=== PATIENT | male | born 1955 | race Caucasian/White ===

== ENCOUNTER 2024-10-15 18:58 | Inpatient (IN) | payer MEDICARE, SELFPAY ==
[2024-10-15 15:25] VITALS: BMI 35.6
--- NOTE | 2024-10-15 15:28 | HPS.HSE ---
Family Physician
-
Family Physician:
Chief Complaint
-
Chest pain.
History of Present Illness
69 y/o male with CAD s/p CABG (reportedly x6 @ [facility], 17 years ago) presenting with a STEMI. Patient reports prior exertional angina. Pain become constant and EMS was called. When they arrived, they found him on the floor. He denies LOC but it is
noted that he has lost control of bowel and bladder. He reports that his chest pain continues, though not as severe as before. He is visibly diaphoretic and clammy to the touch. Auto-BP will not register. Manual SBP is < 80 mmHg. EKG shows
junctional rhythm with large ELVIA in the inferior leads and smaller ELVIA in the anterolateral leads. The patient was given ticagrelor, heparin, aspirin and is being started on norepinephrine.
His son is present and reports that the patient does consume EtOH but does not smoke. He reports good medication compliance.
Medical History
Past Medical History
Past Medical History: Reports CAD
Past Surgical History: Reports Cardiac (CABG @ [facility] circa [id number] (reportedly 6 grafts - unknown anatomy).)
Social History
Unable to obtain full social history at this time due to: Acuity
Tobacco: Non-smoker
Alcohol: Daily
Living: Alone
Family History
Family History: Not pertinent
Allergies / Home Medications
Allergies reflects when Allergies were last updated in [employer].
Home Medications with original date entered in [employer]
Allergy/Medication List:
NKDA.
Review of Systems
-
Unable to obtain full review of systems at this time due to: Acuity
History Source: Patient and Family
Constitutional: Reports Other (Diaphoresis.)
Respiratory: Reports Trouble Breathing
Cardiac: Reports Chest Pain
Physical Exam
Vital Signs
Vital Signs
Pulse Resp Pulse Ox
42 16 93
10/15/24 15:21 10/15/24 15:21 10/15/24 15:21
Physical Exam
General: Well Developed, Well Nourished, Appears in Distress, Sweats and Obese
HEENT: NormoCephalic, Anicteric, Moist mucous membranes, Atraumatic, PERRLA, No Ptosis, Nose Appears Normal and Ears Appear Normal
Respiratory: Clear
Cardiac: S1/S2 and Regular Rhythm
Breast: Deferred by me
GI: Non Tender, Non Distended, Normal Bowel Sounds and No Hepatosplenomegaly
Rectal: Brown
Genito-urinary: Deferred by me
Musculoskeletal: No Clubbing, No Cyanosis and No Edema
Skin: Other (Cold/clammy.)
Neuro: AO x 3
Hematologic/Lymphatic: No Lymphadenopathy
Data Reviewed
-
Medical Tests (Nuc Med, Echo, EKG etc): Image Personally Visualized and interpreted, Report Reviewed by me and Discussed with Physician
Impression/Plan
-
Impression/Plan: 69 y/o male with CAD and prior CABG (unknown anatomy) presenting with STEMI (ELVIA in inferior and anterolateral leads) and likely cardiogenic shock.
#STEMI
-Acute, threat to life.
-Emergent cardiac catheterization/ad hoc PCI. Possibly placement of MCS given hypotension and likely shock. Clear lungs, junctional rhythm and inferior ELVIA concerning for RV infarct.
-Consent is signed and on the chart.
-Critically ill.
-Further instructions to follow.
[2024-10-15 15:30] LABS: % Basophils 0.3 % (0-2); % Eosinophils 0.5 % (0-6); % Immature Granulocytes 0.6 % (0-0.5); % Lymphocytes 15.1 % (20.5-51.1); % Monocytes 5.8 % (1.7-9.3); % Neutrophils 77.7 % (42.2-75.2); Absolute Eosinophils 0.1 10^3/uL (0-0.7); Absolute Immature Granulocytes 0.1 10^3/uL (0-0.05); Absolute Lymphocytes 1.9 10^3/uL (1.2-3.4); Absolute Monocytes 0.7 10^3/uL (0.1-0.6); Absolute Neutrophils 9.9 10^3/uL (1.4-6.5); Hematocrit 38.1 % (39.0-52.0); Hemoglobin 12.9 g/dL (13.0-18.0); Mean Corp Hgb Conc. 33.9 g/dL (33.0-37.0); Mean Corpuscular Hgb 30.6 pg (27.0-31.0); Mean Corpuscular Volume 90.5 fL (80.0-94.0); Mean Platelet Volume 9.1 fL (7.4-10.4); Nucleated Red Blood Cells % 0 % (-); Platelet Count 247 10^3/uL (130-400); Red Blood Cell Count 4.21 10^6/uL (4.70-6.10); Red Cell Dist. Width 13.2 % (11.5-14.5); White Blood Cell Count 12.7 10^3/uL (4.8-10.8)
[2024-10-15 15:38] LABS: INR 1.04
[2024-10-15 15:39] LABS: APTT 23.4 Sec (23.4-35.0)
[2024-10-15 15:42] LABS: ALT (SGPT) 11 U/L (0-50); AST (SGOT) 23 U/L (17-59); Albumin 4.1 g/dl (3.5-5.0); Alkaline Phosphatase 46 U/L (38-126); Blood Urea Nitrogen 20 mg/dl (9-20); Calcium 8.8 mg/dl (8.4-10.2); Carbon Dioxide 21 mmol/L (22-30); Chloride 107 mmol/L (98-107); Estimated Creatinine Clearance 57 ml/min; Glucose 261 mg/dl (70-99); Potassium 4.5 mmol/L (3.5-5.1); Sodium 139 mmol/L (135-145); Total Bilirubin 0.4 mg/dl (0.2-1.3); Total Protein 6.4 g/dl (6.3-8.2)
--- NOTE | 2024-10-15 15:46 | ED.GENMED ---
History of Present Illness
General
Chief Complaint: Chest Pain
Source: patient and ambulance crew
Time Seen by Provider: 10/15/24 15:16
History of Present Illness
History of Present Illness:
69-year-old male brought to the emergency room by medics with chest pain, dizziness. Patient states he was working out at home when he began to have chest pain. He collapsed to the ground. He does not believe he lost consciousness so the patient
was incontinent of stool and urine suggesting he very well may have had a his syncopal episode. Prehospital EKG showed inferior and anterior ST elevation. A prehospital STEMI alert was called. Patient states he does have a history of coronary
artery disease and had 6 vessel bypass surgery at [place] 17 years ago. He denies taking aspirin, Plavix, Brilinta, or any other oral anticoagulants or antiplatelet. He does not recall the name of his rug washer and has not seen a rug washer
in a while. Patient does endorse recently having exertional chest discomfort which goes away when he rests. He rates his chest pain a 6 out of 10. Medics noted the patient to be bradycardic and diaphoretic as well.
Phy Exam
Physical Exam
Physical Exam:
General: Awake, Alert, Oriented X3. Patient appears acutely ill, diaphoretic, pale
Vitals: Bradycardic, hypotensive
Head: Atraumatic
Eyes: Pupils equal, EOMI
Throat: Airway intact, no exudates
Neck: Trachea midline
Lungs: Clear and equal b/l
Heart: Regular rate, no murmurs
Abd: Soft, Nontender, No pulsatile mass
Neuro: Nonfocal
Skin: Warm, dry, no rash
Extremities: pulses equal b/l, no edema
Scores
Heart Score for Chest Pain Patients
STEMI patient?: Yes
Course
Orders/Labs/Results
Orders:
Orders
10/15/24
Echo 2D MMode Color/Doppler Urgent
Reason for Study: impella placement
Portable Chest Xray [CR Chest Portable - 1 View] Urgent
Comment:
Reason For Exam: impella placement
Reason Study Needs to be Portable: Unable to Transport
10/15/24 Dinner
NPO
Allow oral meds: No
Allow clear liquids: No
NPO with Ice Chips: No
10/15/24 15:20
ECG [Electrocardiogram (*1)] Urgent
Reason for Study: Chest Pain
EKG- Treatment ONCE
10/15/24 15:22
Complete Blood Count/With Diff Urgent
Comprehensive Metabolic Panel Urgent
PT/INR [Prothrombin Time] Urgent
PTT Urgent
Troponin I Urgent
10/15/24 15:23
NORepinephrine 4 MG/250 ML [Levophed] 4 mg in 250 ml .ROUTE .STK-MED
10/15/24 16:15
Amiodarone [Cordarone] 900 mg DEXTROSE 5% PVC-free BAG [D5W PVC-free BAG] 500 ml IV PER PROTOCOL
10/15/24 16:20
Aspirin Chewable [Low Strength Aspirin] 324 mg .ROUTE .STK-MED ONE
Heparin 5,000 units .ROUTE .STK-MED ONE
Ticagrelor [Brilinta] 180 mg .ROUTE .STK-MED ONE
10/15/24 17:03
Sodium Bicarbonate 25 meq Dextrose 5%/Water 1000 ml [D5w] 1,000 ml INF CATH PRN
10/15/24 17:44
Nitroglycerin Sublingual [Nitrostat (Sublingual)] 0.4 mg SL [id number] PRN
Neurological Checks As Directed
Frequency: q2h
10/15/24 17:45
Gear Hobber Set Up Operator Consult Urgent
Consulting Provider: Arnel Posada
Was physician already notified: Yes
Reason for consult: RV impella d/t RV infarct
Urinalysis Urgent
Bedside Glucose Monitoring-ONCE As Directed
Comment: upon arrival to ICU
Bladder Scan As Directed
Follow Bladder Retention/Intermittent Cath Algorithm?: Yes
Frequency: Per Retention Algorithm
Comment: as per intermittent urinary catheter algorithm
ECG as needed As Directed
ECG as needed for:: Chest Pain
Other reason
Other reason for ECG as needed:: new suspicion of ACS
Comment: At onset of Chest Pain and then Q__H x 2. draw Troponin with each ECG
Additional Instructions:: at onset of chest pain or new suspicion of ACS:
-- ECG and Troponin urgent now
-- then ECG and Troponin with each ECG every 3 hours x total of 3,
including ED or other inpatient ECG/troponins.
Intake/ Output As Directed
Frequency: Per unit guidelines
Notify MD As Directed
Notify physician if: if patient has chest pain or new suspicion of ACS
Notify MD As Directed
Notify physician if: while in ICU level of care:
glucose greater than or equal to 180 mg/dL once, contact provider to initiate Critical
Care Glycemic Protocol Target Range 140-180 mg/dL.
Vital Signs As Directed
Frequency: Per unit guidelines
Weight As Directed
Frequency: Daily
Pulse Ox/spot Check [RESP] Urgent
Quantity: 1
Special Instructions: Pulse Oximetry on admission
10/15/24 18:21
Admit Patient As Directed
Co-Sign Provider:
Level of Care: Inpatient admission
Assign to:: CVICU
Physician / Group: Tony/SYD
Diagnosis: RV infarct, inferior STEMI, unsuccessful intervention, RPella.
Reason for Hospitalization: RV infarct, inferior STEMI, unsuccessful intervention, RPella.
Expected length of stay greater than two midnights?: Yes
ELOS- Estimated Length of Stay in days: 5
I certify the patient meets the requirements for IP care: Yes
Reason for Overnight Stay: Standard of Care
Code Status As Directed
Resuscitation Status: Full Code
Acetaminophen [Tylenol] 650 mg PO Q4HPRN PRN
Fentanyl Citrate/Pf [Sublimaze] 50 mcg IV [id number] PRN
Midazolam HCl [Versed] 1 mg IV Q5MPRN PRN
Activity As Directed
Activity Level: Bedrest
Comment: refer to hemostasis device used for bedrest duration, then ambulate ad billy
Revenue Specialist Procedure As Directed
Cardiac Cath Procedure: Cardiac catheterization, RPella placement.
Revenue Specialist Procedure As Directed
Cardiac Cath Procedure: cardiac catheterization
Femoral Artery Hemostasis Method As Directed
Procedure performed:: Cardiac Catheterization
Type of femoral hemostasis method used:: Other
Other femoral hemostasis method used:: Sheaths sutured in place.
Duration of bedrest (hours):: 9
Instructions:: Absolute bed rest.
Call provider if:: hematoma present after hemostasis achieved
Head of Bed-Restrictions As Directed
Comment: may elevate head of bed 30 degrees
Notify MD As Directed
Notify physician if: immediately for chest pain or bleeding from access site(s)
Site Checks As Directed
Check access site for bleeding/hematoma: Yes
Comment: on arrival, Q15min x4, Q30min x2, Q1 hr x2, Q2 hr x2, Q4 hr or per
protocol
Vascular Checks As Directed
Location: distal to access site - pulse check
Frequency: Other
Comment: on arrival, Q15min x4, Q30min x2, Q1 hr x2, Q2 hr x2, Q4 hr or per protocol
Venous Foot Pumps As Directed
Location: Bilateral feet
Vital Signs As Directed
Frequency: Other
Additional Instructions:: on arrival, Q15min x4, Q30min x2, Q1 hr x2, Q2 hr x2, then Q4 hr or per unit
protocol
10/15/24 18:22
PRN Pain Medication Management As Directed
May give lesser potent ordered pain med per pt: Yes
preference::
Protocol:: Medication orders for pain may be administered in a
manner that supports deferring to patient preference
when the pt is:
- Requesting an ordered lesser potent pain medication.
Least to most potent pain medications are defined
as: acetaminophen < NSAID < tramadol < opioids
(morphine, oxycodone, hydromorphone).
- Requesting a lesser dose of the same medication IF
ORDERED.
- Requesting a less intrusive route of administration
if both routes are prescribed by the provider (PO <
IV).
DX Deep Vein Thrombosis Video Routine
10/15/24 18:30
0.9% Sodium Chloride 1000 ml [Nss] 1,000 ml IV PER PROTOCOL
Infusion rate in mL/kg/hr:: 1.5
Infusion rate in mL/hr:: 146
Duration of infusion (hours):: 3
DOBUTamine 500 MG/D5W 250 ML [Dobutrex 500 mg] 500 mg in 250 ml IV PER PROTOCOL
Currently infusing. Continue current dose and titrate:: Yes
Titrate to keep:: SBP > 90 mmHg
Titrate by mcg/kg/min:: 0.5 mcg/kg/minute
Frequency of titrations (minutes):: 15
Maximum dose in mcg/kg/min:: 20
Begin to taper infusion when:: Remained at goal for 4hrs
Taper by mcg/kg/min:: 1 mcg/kg/min
Frequency of taper (minutes) if patient maintains goal:: 30
Taper to off?: Yes
If infusion off & no longer maintaining goal:: Contact Provider
EPINEPHrine 4 mg/250 mL NSS [Adrenalin] 4 mg in 250 ml IV PER PROTOCOL
Currently infusing. Continue current dose and titrate:: Yes
Titrate to keep:: SBP > 90 mmHg
Titrate by mcg/min:: 0.5-1 mcg/min
Frequency of titrations (minutes):: 5
Maximum dose in mcg/min:: 10
Begin to taper infusion when:: Remained at goal for 4hrs
Taper by mcg/min:: 0.5-1 mcg/min
Frequency of taper (minutes) if patient maintains goal:: 30
Taper to off?: Yes
If infusion off & no longer maintaining goal:: Contact Provider
Lidocaine 2 Gram/500 ml [Xylocaine 2 Gram] 2,000 mg in 500 ml IV ORDERED RATE
NORepinephrine 4 MG/250 ML [Levophed] 4 mg in 250 ml IV PER PROTOCOL
Currently infusing. Continue current dose and titrate:: Yes
Titrate to keep:: SBP > 90 mmHg
Titrate by mcg/min:: 1-2 mcg/min
Frequency of titrations (minutes):: 5
Maximum dose in ICU in mcg/min:: 30
Maximum dose in IMU in mcg/min:: 8
Maximum dose in IVU in mcg/min:: 4
Begin to taper infusion when:: Remained at goal for 4hrs
Taper by mcg/min:: 1-2 mcg/min
Frequency of taper (minutes) if patient maintains goal:: 30
Taper to off?: Yes
If infusion off & no longer maintaining goal:: Contact Provider
10/15/24 18:31
Heparin Protocol- PTT Orders As Directed
PTT per Heparin protocol: -Obtain CBC and baseline PTT - if not already collected.
-Obtain PTT 6 hours from start of infusion. Then, every 6 hours until 2 consecutive
PTT's are therapeutic. Then, PTT Daily.
-With each rate change, obtain PTT every 6 hours until 2 consecutive PTT's are
therapeutic. Then, PTT Daily.
Notify MD As Directed
Notify physician if: PTT is greater than or equal to 200.
10/15/24 18:37
Lactic Acid Q6H
10/15/24 18:38
Arterial Blood Gas Urgent
%Oxygen/Room Air: vent
Complete Blood Count/With Diff Urgent
Comprehensive Metabolic Panel Urgent
D-Dimer Urgent
Fibrinogen Urgent
Glycohemoglobin (HgbA1c) Urgent
LDH Q6H
Magnesium Urgent
Phosphorus Urgent
Protime/PTT Urgent
Transfer Attending Physician [Change Attending Physician] As Directed
Change attending physician to: reynaldo hudson
10/15/24 18:45
Heparin 01639 Units/250 ml 25,000 units in 250 ml IV PER PROTOCOL
Weight to be used for heparin protocol in kilograms (kg):: 97.1
Protocol:: Cardiac Tx/Acute Coronary
PTT Goal Range to be used:: PTT 73 to 111 seconds
Order type:: Initial
INITIAL Infusion Dose (UNITS/KG/hr) & then follow protocol:: 12 units/kg/hr
Infusion Dose in UNITS/hr & then follow protocol (UNITS/hr):: 1,000
INFUSION RATE in mL/hr & then follow protocol (mL/hr):: 10
PTT less than or equal to 64 seconds:: Increase rate by 200 units/hr (+ 2 mL/hr)
PTT 64.1 to 72.9 seconds:: Increase rate by 100 units/hr (+ 1 mL/hr)
PTT 73 to 111 seconds:: Target Range. No change in rate.
PTT 111.1 to 130.9 seconds:: Decrease rate by 100 units/hr (- 1 mL/hr)
PTT 131 to 199.9 seconds:: HOLD for 1 hr. Then decrease rate by 200 units/hr (- 2 mL/hr)
PTT greater than or equal to 200 seconds:: HOLD for 2 hrs & Notify Provider. Then decrease by 200 units/hr (-
2 mL/hr)
Lab follow-up:: Each change, PTT q6h until 2 consecutive are therapeutic. Then PTT
daily.
Lidocaine Bolus 100 mg [Xylocaine Bolus 100 mg] 100 mg IV NOW STA
10/15/24 18:[address] See Dose Instructions PO ONCE PRN PRN
10/15/24 18:50
Sodium Bicarbonate 50 meq .ROUTE .STK-MED ONE
Transvenous Pacemaker As Directed
Rate: 90
MA: 10
Demand: R femoral
10/15/24 18:53
Calcium CHLORIDE [Calcium Chloride 10% Syringe] 2,000 mg .ROUTE .STK-MED ONE
Sodium Bicarbonate 100 meq .ROUTE .STK-MED ONE
10/15/24 18:54
Calcium CHLORIDE [Calcium Chloride 10% Syringe] 500 mg IV NOW STA
Magnesium Sulfate 1 G/D5w [Magnesium Sulfate] 1 gm in 100 ml IV NOW
10/15/24 19:00
0.9% Sodium Chloride 500 ml [Nss] 500 ml IV [id number]
Flush (0.9% Sodium Chloride) [Flush (Nss)] See Dose Instructions IV PER PROTOCOL
10/16/24 00:11
LDH Q6H
10/16/24 00:15
Lactic Acid Q6H
10/16/24 06:00
Complete Blood Count/No Diff DAILY
Comprehensive Metabolic Panel DAILY
D-Dimer DAILY
Fibrinogen DAILY
Magnesium DAILY
PT/INR [Prothrombin Time] DAILY
CR Chest Portable - 1 View IN AM
Comment:
Reason For Exam: s/p OK
Reason Study Needs to be Portable: Unable to Transport
10/16/24 06:11
LDH Q6H
10/16/24 06:15
Lactic Acid Q6H
10/16/24 08:00
Pantoprazole [Protonix IV] 40 mg IV DAILY
10/16/24 12:11
LDH Q6H
10/16/24 12:15
Lactic Acid Q6H
10/17/24 06:00
Complete Blood Count/No Diff DAILY
Complete Blood Count/No Diff Q2D
Comment: Notify MD if platelet count is <130,000 or decreases by 50% from baseline
Comprehensive Metabolic Panel DAILY
D-Dimer DAILY
Fibrinogen DAILY
Magnesium DAILY
PT/INR [Prothrombin Time] DAILY
10/18/24 06:00
Complete Blood Count/No Diff DAILY
Comprehensive Metabolic Panel DAILY
D-Dimer DAILY
Fibrinogen DAILY
Magnesium DAILY
PT/INR [Prothrombin Time] DAILY
10/19/24 06:00
Complete Blood Count/No Diff DAILY
Complete Blood Count/No Diff Q2D
Comment: Notify MD if platelet count is <130,000 or decreases by 50% from baseline
Comprehensive Metabolic Panel DAILY
D-Dimer DAILY
Fibrinogen DAILY
Magnesium DAILY
PT/INR [Prothrombin Time] DAILY
10/20/24 06:00
Complete Blood Count/No Diff DAILY
Comprehensive Metabolic Panel DAILY
D-Dimer DAILY
Fibrinogen DAILY
Magnesium DAILY
PT/INR [Prothrombin Time] DAILY
10/21/24 06:00
Complete Blood Count/No Diff DAILY
Complete Blood Count/No Diff Q2D
Comment: Notify MD if platelet count is <130,000 or decreases by 50% from baseline
Comprehensive Metabolic Panel DAILY
D-Dimer DAILY
Fibrinogen DAILY
Magnesium DAILY
PT/INR [Prothrombin Time] DAILY
10/22/24 06:00
Complete Blood Count/No Diff DAILY
Comprehensive Metabolic Panel DAILY
D-Dimer DAILY
Fibrinogen DAILY
Magnesium DAILY
PT/INR [Prothrombin Time] DAILY
10/23/24 06:00
Complete Blood Count/No Diff Q2D
Comment: Notify MD if platelet count is <130,000 or decreases by 50% from baseline
10/25/24 06:00
Complete Blood Count/No Diff Q2D
Comment: Notify MD if platelet count is <130,000 or decreases by 50% from baseline
10/27/24 06:00
Complete Blood Count/No Diff Q2D
Comment: Notify MD if platelet count is <130,000 or decreases by 50% from baseline
10/29/24 06:00
Complete Blood Count/No Diff Q2D
Comment: Notify if platelet count is <130,000 or decreases by 50% from baseline
10/31/24 06:00
Complete Blood Count/No Diff Q2D
Comment: Notify MD if platelet count is <130,000 or decreases by 50% from baseline
Abnormal Lab Results
10/15/24 10/15/24 10/15/24
15:22 16:33 16:49
WBC 12.7 H 10^3/uL
(4.8-10.8)
RBC 4.21 L 10^6/uL
(4.70-6.10)
Hgb 12.9 L g/dL
(13.0-18.0)
Hct 38.1 L %
(39.0-52.0)
MCH
Abs Immat Gran (auto) 0.1 H 10^3/uL
(0-0.05)
Absolute Neuts (auto) 9.9 H 10^3/uL
(1.4-6.5)
Absolute Monos (auto) 0.7 H 10^3/uL
(0.1-0.6)
Immature Gran % 0.6 H %
(0-0.5)
Neutrophils % 77.7 H %
(42.2-75.2)
Lymphocytes % 15.1 L %
(20.5-51.1)
PT
APTT
D-Dimer
pH
pCO2
HCO3
Potassium
Chloride
Carbon Dioxide 21 L mmol/L
(22-30)
Glucose 261 H mg/dl
(70-99)
Lactic Acid
Calcium
Phosphorus
AST
Lactate Dehydrogenase
Troponin I 0.058 H* ng/ml
Total Protein
Albumin
POC ACT Low Range 221 H Seconds 331 H Seconds
(116-155) (116-155)
10/15/24 10/15/24 10/15/24
18:30 18:37 18:38
WBC 19.7 H 10^3/uL
(4.8-10.8)
RBC 3.90 L 10^6/uL
(4.70-6.10)
Hgb 12.2 L g/dL
(13.0-18.0)
Hct 36.0 L %
(39.0-52.0)
MCH 31.3 H pg
(27.0-31.0)
Abs Immat Gran (auto) 0.2 H 10^3/uL
(0-0.05)
Absolute Neuts (auto) 15.1 H 10^3/uL
(1.4-6.5)
Absolute Monos (auto) 1.4 H 10^3/uL
(0.1-0.6)
Immature Gran % 1.2 H %
(0-0.5)
Neutrophils % 76.6 H %
(42.2-75.2)
Lymphocytes % 14.9 L %
(20.5-51.1)
PT 18.2 H Sec
(11.4-14.6)
APTT > 200 H* Sec
(23.4-35.0)
D-Dimer 0.74 H ug/mlFEU
(0.00-0.50)
pH 7.17 L*
(7.35-7.45)
pCO2 49 H mmHg
(35-48)
HCO3 17.9 L mmol/L
(21-28)
Potassium 3.1 L D mmol/L
(3.5-5.1)
Chloride 111 H mmol/L
(98-107)
Carbon Dioxide 14 L* mmol/L
(22-30)
Glucose 418 H mg/dl
(70-99)
Lactic Acid 4.1 H* mmol/L
(0.7-2.0)
Calcium 7.1 L D mg/dl
(8.4-10.2)
Phosphorus 5.1 H mg/dl
(2.5-4.5)
AST 113 H U/L
(17-59)
Lactate Dehydrogenase 375 H U/L
(120-246)
Troponin I
Total Protein 5.5 L g/dl
(6.3-8.2)
Albumin 3.2 L g/dl
(3.5-5.0)
POC ACT Low Range 318 H Seconds
(116-155)
10/15/24 18:38
10/15/24 18:38
Vital Signs
Initial and Last Documented VS:
Initial Vital Signs
Pulse Ox
93
10/15/24 15:15
Last Documented Vital Signs
Temp Pulse Resp Pulse Ox
94.5 F L 0 0 98
10/15/24 18:54 10/15/24 19:32 10/15/24 19:32 10/15/24 18:53
MDM/Problems Addressed
Differential Diagnosis Includes:
STEMI, dissection, GERD
MDM/Problems Addressed:
Patient presents with chest discomfort. Prehospital EKG consistent with a ST elevation myocardial infarction. Catheter was called prior to patient's arrival. Dr. Graff in the emergency room after the patient. Patient appeared to be diaphoretic,
mildly confused, hypotensive and bradycardic. IV fluid bolus was administered as well as Levophed was initiated. Patient was maintaining his airway. Nasal cannula oxygen was administered. After receiving Brilinta and heparin the patient was
taken to the Revenue Specialist. I escorted the patient to the Revenue Specialist given his unstable vital signs. He was transferred to the Revenue Specialist table
Chronic conditions affecting care: HTN and CAD
*Pulse Oximetry
Patient hypoxic: yes
Comment: 92
*EKG
Interpreted by ED Provider?: Yes
Interpretation: abnormal
Heart Rate: 38
Rate: bradycardiac
Rhythm: junctional
Interval: normal interval
QRS Pattern: right bundle branch block
Ischemia: ST elevation (2, 3, aVF, V3, v4, v5, v6 with reciprocal changes)
*Security Shift Manager Interpretation
Rate: bradycardiac
Interpretation: abnormal
Heart Rate: 38
Rhythm: junctional
*Critical Care Note
Total Time (30-74mins, 75-104mins- exclusive of procedures): 30
comment:
Critical care statement: A total of 30 minutes of critical care time was provided for this patient. This includes management of unstable vital signs, evaluation of the patient at bedside, reviewing the patient's pertinent medical records, discussion
with consultants, review of old EKGs, escorting patient up to the Revenue Specialist. This time with separate from time utilized to perform the aforementioned documented procedures
ED Attending Note
-
Portions of this chart may have been created with voice recognition software.� Occasional wrong word or��sound alike� substitutions may have occurred due to the inherent limitations of voice recognition software.
Discharge Plan
Departure
Patient Disposition: Admit
Date of Disposition: 10/15/24
Time of Disposition: 16:01
Admit to: skilled laborer
Presentation/result/management discussed w/ accepting MD/: Dr. Graff
Condition: Critical
Discharge Problem:
Inferior and lateral ST segment elevation
Interventions
Interventions:
*Risk Screen - Suicide Last Done: 10/15/24 15:15
*General Assessment Last Done: 10/15/24 15:15
*Neglect/Abuse Screening Last Done: 10/15/24 15:15
*Nursing Disposition Last Done: 10/15/24 15:30
ED- Cardiac Assessment Last Done: 10/15/24 15:15
Discharge Date and Time
Discharge Date/Time: 10/15/24 15:30
--- NOTE | 2024-10-15 15:54 | EDRN ---
See ACS sheet.
Report to lab coordinator 15:29
Transported on levophed at 5mcg/min, increased to 10 mcg/min enroutwe when pressure dropped to 70/54.
[2024-10-15 16:04] LABS: Troponin I 0.058 ng/ml
[2024-10-15 16:38] LABS: ACT-LR - POC 221 Seconds (116-155)
[2024-10-15 16:55] LABS: ACT-LR - POC 331 Seconds (116-155)
--- NOTE | 2024-10-15 17:47 | W.PN.ANESINT ---
Anesthesia Intubation Note
- Intubation Note
Intubation Note:
Diagnosis: Cardiac Arrest
Blade: Videoscope MAC 4
Tube Size: 8.0
Depth: 23
Side Taped: Right
Drugs Used: Versed 2 mg, Succinylcholine 200
Grade View: III
EtCO2 Present: Yes
Atraumatic: Yes
Attempts: 1
Insertion Start and Stop Time: 1645, 1646
SaO2 Pre: 100
SaO2 Post: 100
Glidescope Used: Yes
Other Airway Adjustments: None
Pre-Oxygenated: Yes
Portable Chest X-Ray: Pending
RSI: Yes
Suctioned: No
Bilateral Breath Sounds Confirmed: Yes
Vent Settings:
Settings per Counter Professional Attending Physician
--- NOTE | 2024-10-15 18:02 | ITS.CL.CATH ---
Agricultural Technician - Catheterization
Cardiac Catheterization
Procedure Report:
CARDIAC CATHETERIZATION REPORT
Date of Procedure: 10/15/2024
Referring: Ben Mak D.O.
Indication: ST elevation myocardial infarction.
PROCEDURE:
1. Right heart catheterization.
2. Coronary angiography.
3. Temporary pacemaker placement.
4. Left heart catheterization.
5. Bypass angiography.
6. Unsuccessful intervention of the proximal RCA.
7. ACLS including multiple defibrillation's and initiation of inotropic, vasopressor drips.
8. Placement of a right ventricular assist device (R-[place]).
A total of 0 minutes of procedural/moderate sedation was utilized. An independent director medical science was present to assist with and help manage the patient's level of consciousness and physiologic status.
ACCESS:
1. 6 [place] right common femoral artery using a modified Seldinger technique with a micropuncture kit under ultrasound guidance.
2. Long 6 [place] right common femoral vein using a modified Seldinger technique with a micropuncture kit under ultrasound guidance.
3. 8 [place] right internal jugular vein using a modified Seldinger technique with a micropuncture kit under ultrasound guidance.
4. 16 [place] right internal jugular vein over a wire previously placed through the 8 [place] IJ sheath.
CATHETERS:
1. 7.5 [place] Canova-Giancarlo.
2. 6 [place] temporary pacemaker.
3. 6 [place] pigtail catheter.
4. 6 [place] JL4.
5. 6 [place] JR4.
6. 6 [place] AL-1.
7. 6 [place] JR4 guiding catheter.
HEMODYNAMIC DATA
Weight (kg): 97.1
AO (s/d/x, mmHg): 137/71/91
LV (s/x, mmHg): 150/22
PCWP (a/v/x, mmHg): /
PA (s/d/x, mmHg): 51/24/33
RV (s/x, mmHg): 51/24
RA (a/v/x, mmHg): 30//24
SVC SvO2 (%): 60.9
IVC SvO2 (%): Not obtained.
RA SvO2 (%): Not obtained.
RV SvO2 (%): Not obtained.
PA SvO2 (%): 64.2
SaO2 (%): 98.2
Hbg (g/dL): 14.7
BIPIN
CO (L/min): 3.41
CI (L/min/m2): 1.68
Thermodilution
CO (L/min): Not performed.
CI (L/min/m2): Not performed.
TPG (mmHg): 9
PVR (Cheng Units): 2.64
SVR (dynes*seconds*cm^-5): 1572
AVO2 Diff (Volume %): 6.80
AV gradient (x, mmHg): 15.4
AV area (cm2): 1.59
MV gradient (x, mmHg): Not obtained.
MV area (cm2): Not performed.
LEFT VENTRICULOGRAPHY: Performed in an KILPATRICK projection. Normal left ventricular size with hyperdynamic function of the anterior and lateral head with severe hypokinesis/akinesis of the entire inferior wall with preserved systolic function. LV
ejection fraction estimated at 60%. There is no mitral valve regurgitation. There is no aortic valve insufficiency. The aortic root, ascending aorta and visualized ascending aorta appear normal.
AORTOGRAPHY: Not performed.
CORONARY ANGIOGRAPHY
Dominance: Right.
Left Main: Small size, bifurcating vessel.
LAD: Normal size vessel giving rise to at least 1 diagonal. The vessel is diffusely diseased and chronically occluded in its midportion. The distal LAD is supplied by a patent [place] graft, though the apical LAD appears diffusely diseased.
Ramus: Congenitally absent.
Circumflex: Normal size, nondominant vessel giving rise to 1 significant obtuse marginal which subsequently bifurcates into 2 daughter vessels. The circumflex is chronically totally occluded at its proximal margin. The obtuse marginal is
supplied by patent vein graft.
RCA: Presumably dominant. The vessel is chronically totally occluded at its origin.
BYPASS GRAFT ANGIOGRAPHY
CUNNINGHAM to LAD: Normal size graft with end-to-side anastomosis to the mid LAD. There is no evidence of stenosis or graft degeneration.
SVG to OM1: Normal size graft with end-to-side anastomosis to OM1. There is a 40% lesion in the proximal graft with YOCASTA-3 flow.
INTERVENTIONS
1. Unsuccessful intervention on the [place] RCA.
2. ACLS with CPR and multiple defibrillations.
3. Ventilator dependent respiratory failure requiring intubation.
4. Placement of an R-[place] right ventricular assist device.
Narrative:
The patient presented to the cardiac Agricultural Technician after evaluation in the emergency room. EKG showed a junctional rhythm with ST elevations in the inferior margin as well as in the anterolateral precordium. After being placed on the cardiac Agricultural Technician
table, he was prepped and draped in standard sterile fashion. Access was obtained in the right common femoral artery and vein using a micropuncture kit under ultrasound guidance. A long 6 [place] sheath was placed in the right common femoral vein.
A temporary pacemaker was advanced through the right common femoral venous sheath and into the right ventricle. The pacemaker was placed in the RV apex and the patient was placed at backup rate of 60 bpm after confirming good capture. Blood
pressure was taken from the right common femoral arterial sheath and found to be adequate with a systolic pressure of 168 mmHg.
We then turned our attention to the right heart catheterization. The right internal jugular vein was identified on ultrasound and access was obtained using a micropuncture needle. The 8 [place] sheath was placed after exchanging the micropuncture
sheath. A 7.5 [place] Canova-Giancarlo catheter was advanced and a right heart catheterization was performed in standard fashion. Observing that the pulmonary capillary wedge pressure was 22, we elected not to place an Impella but proceed to diagnostic
left heart catheterization and coronary angiography. Left heart catheterization confirmed an LVEDP of approximately 22 mmHg with a hyperdynamic anterior and lateral wall on left ventriculography. The inferior wall was severely hypokinetic to
akinetic, confirming our suspicion of a primarily right sided infarct which would explain the discrepancy in filling pressures as well as conduction. Diagnostic angiography showed diffusely diseased [place] coronary arteries including a chronic
total occlusion of the proximal circumflex, the proximal LAD and the ostial RCA. Bypass angiography showed a patent CUN[place]AM to LAD and a patent SVG to OM1. The SVG to RCA was occluded. No other vein grafts could be observed.
The decision was made to attempt percutaneous coronary intervention. The diagnostic catheter was removed over a wire and a 6Fr JR4 guiding catheter was advanced to the aortic root and seated in the right coronary artery. Additional heparin was given
and a Power Turn Flex wire was advanced into the ostium of the artery. Unfortunately, the power turn Flex wire would not pass beyond the ostium of the vessel. A whisper wire was advanced with a quick cross microcatheter and support. The whisper
wire was able to enter the right coronary artery and proceed distally into the proximal vessel. The quick cross microcatheter was able to enter the vessel, but would not pass beyond the chronic total occlusion at the origin. In spite of multiple
attempts, the whisper wire would not advance beyond the proximal margin of the vessel and did not demonstrate a free tip, raising concerns that we may be in a dissection plane, though it was more likely that we were simply in an occluded portion of
the vessel.
While we were attempting to proceed to percutaneous intervention, the patient began to have progressive decompensation. He went into ventricular fibrillation and required multiple defibrillations. After the his third defibrillation, anesthesia was
called for intubation and sedation. The patient was given multiple rounds of amiodarone boluses as well as lidocaine boluses. An amiodarone drip was started at 1 mg/min. Lidocaine was started at 1 mg/min and rapidly uptitrated to 4 mg/min. Blood
pressure required vasopressor and inotropic support. The norepinephrine, which had been started in the emergency room, was uptitrated to 15 mcg/kg/min. At this time, I was concerned that the patient would not be able to be revascularized and our
best hope would be hemodynamic support. I reached out to Dr. Wilson who joined me in the Agricultural Technician for consultation.
The whisper wire was withdrawn from the quick cross microcatheter and a Fielder XT wire was advanced into the quick cross microcatheter. The Fielder XT wire was advanced into the right coronary artery and was able to move beyond the position of the
whisper wire, but still would not progress deeper into the artery. The patient entered ventricular fibrillation again and was defibrillated. Unfortunately, he remained in ventricular fibrillation and required ACLS including CPR. Epinephrine was
given. Chest compressions were vigorous and robust. After 2 rounds of CPR, we reestablished a perfusing rhythm and pressure. At this time, we felt certain that we would not be able to reestablish meaningful blood flow in any of the [place] vessels
and there was no role for attempted revascularization. The JR4 guiding catheter and associated interventional equipment were withdrawn.
Dr. Wilson entered the room to assist with placement of an RVAD. The Canova-Giancarlo catheter was removed and the rigid Impella wire was advanced through the 8 [place] sheath in the right internal jugular vein into the inferior vena cava. After extending
the small IJ incision, the 8 [place] sheath was withdrawn and the right internal jugular vein was dilated using serial rigid dilators. The 16 [place] introducer sheath was then advanced into the right internal jugular vein and the dilator was
withdrawn. The Canova-Giancarlo catheter was then readvanced through the IJ sheath and into the pulmonary artery. Through the Canova-Giancarlo catheter, we advanced the 0.024 our [place] placement wire into the distal right pulmonary artery. The Canova-Giancarlo
catheter was removed and the R-[place] was advanced into the main pulmonary artery. Once in position, the wire was withdrawn and the R-[place] was spun up to P5. With R-[place] in place, the ectopy and frequency of VT/VF substantially improved. We did
notice that the patient's blood pressure tended to drift down. Dobutamine was started at 2.5 mcg/kg/min, then uptitrated to 5 mcg/kg/min.
The internal jugular delivery sheath was peeled away and the repositioning sheath was sutured into place, including a pursestring suture to mitigate any oozing. The right femoral artery and venous sheaths were sutured in place. All access points
had Tegaderms applied. The patient was transferred to the CVICU in critical condition. The family was updated on the severity of his illness.
Closure Device: None. The right common femoral arterial and venous sheaths were sutured in place. The right internal jugular our pelvis sheath was sutured in place including a pursestring suture around the access site.
Radiation dose (mGy): 973.16
DAP (cm2.Gy): 84.5638
Fluoroscopy time (minutes): 17.8
CONCLUSIONS:
1. Presumably right dominant circulation with a chronic total occlusion of the proximal LAD, proximal circumflex and ostial RCA, status post prior bypass (patent CUNNINGHAM to LAD, patent SVG to OM 1, occluded SVG to RCA) with unsuccessful intervention
in the [place] RCA.
2. Inferior ST elevation myocardial infarction with right ventricular infarct resulting in cardiogenic shock (Guru = 0.8) requiring right internal jugular right ventricular assist device (R-[place]).
3. Normal left ventricular size with severe hypokinesis/akinesis of the entire inferior wall but hyperdynamic function of the anterior and lateral head, preserving systolic function, LVEF estimated at 60%.
4. Moderately elevated filling pressures (LVEDP = 22 mmHg, PCWP = 22 mmHg at 97.1 kg).
5. Severely depressed cardiac index (1.68 L/min/m�) with CVP >PCWP, Guru of 0.8.
6. Mild postcapillary pulmonary hypertension (mean PA pressure = 33 mmHg, PCWP = 22 mmHg, cardiac output = 3.41 L/min, PVR = 2.64 Cheng units).
7. Mild aortic valve stenosis (mean gradient 15.4 mmHg on pullback, HAKEEM = 1.59 cm�).
RECOMMENDATIONS:
1. Expectant management after cardiac catheterization via right femoral and right internal jugular approach.
2. Absolute bedrest.
3. There are no percutaneous or surgical options for revascularization.
4. Medical management of the right ventricular infarct with R-[place] and pressor/inotrope support.
5. Anticoagulation with heparin for ACS as well as RVAD.
6. Critically ill.
Copy to: Mendel Wilson M.D.
Randell Jimenez, , FACC, FACP
[2024-10-15 18:36] LABS: ACT-LR - POC 318 Seconds (116-155)
--- NOTE | 2024-10-15 18:38 | HPS.HSE ---
Family Physician
-
Family Physician: NO INTERVIEW UNKNOWN
Chief Complaint
-
Chest pain
History of Present Illness
This is a 69-year-old male with past medical history of CAD status post CABG (17 years ago) who presented to the hospital by EMS and found to have ST elevation MD.
Patient unable to provide any history at the time I saw him as he was in extremis status post cath, temporary pacer, RV Impella on pressors and intubated.
According to medical records he has had prior exertional angina. When EMS arrived they found him on the floor for there was no loss of consciousness at that time. They did note that he has lost control of the bowel and bladder. He had ongoing
chest pain and was visibly clammy to the touch. Blood pressure was soft 80s over palp.
There ECG showed a junctional rhythm with a large ST elevation in the inferior lead and small ST elevations in the lateral lead.
He was started on ticagrelor aspirin and heparin and started on norepinephrine and transferred to the Home House[facility].
Medical History
Past Medical History
Past Medical History: Reports CAD
Past Surgical History: Reports Cardiac (CABG @ [facility] circa [id number] (reportedly 6 grafts - unknown anatomy).)
Social History
Unable to obtain full social history at this time due to: Acuity
Tobacco: Non-smoker
Alcohol: Daily
Living: Alone
Family History
Family History: Not pertinent
Allergies / Home Medications
Allergies reflects when Allergies were last updated in [facility].
Home Medications with original date entered in [facility]
Allergy/Medication List:
NKDA.
Review of Systems
-
Unable to obtain full review of systems at this time due to: Acuity
Physical Exam
Vital Signs
Vital Signs
Pulse Resp Pulse Ox
90 16 98
10/15/24 18:28 10/15/24 18:28 10/15/24 18:28
Physical Exam
General: Intubated
HEENT: NormoCephalic and Atraumatic
Respiratory: Clear
Cardiac: S1/S2 and Irregular Rhythm
Breast: Deferred by me
GI: Soft
Rectal: Deferred by Provider
Genito-urinary: Clear Urine and Bautista
Musculoskeletal: No Clubbing, No Cyanosis and No Edema
Neuro: Other (No purposeful responses. Pupils constricted.)
Laboratory Results
-
Laboratory Results
PT 14.0 Sec (11.4-14.6) 10/15/24 15:22
INR 1.04 10/15/24 15:22
APTT 23.4 Sec (23.4-35.0) 10/15/24 15:22
Total Bilirubin 0.4 mg/dl (0.2-1.3) 10/15/24 15:22
AST 23 U/L (17-59) 10/15/24 15:22
ALT 11 U/L (0-50) 10/15/24 15:22
Alkaline Phosphatase 46 U/L (38-126) 10/15/24 15:22
Troponin I 0.058 ng/ml H* 10/15/24 15:22
Data Reviewed
-
Diagnostic Radiology: Image Personally Visualized and interpreted
Medical Tests (Nuc Med, Echo, EKG etc): Image Personally Visualized and interpreted
Lab Data: Labs Reviewed by me
Old Records: Reviewed
Impression/Plan
-
Impression
69-year-old with past medical history of CAD status post multiple vessel CABG in (reports that 12 had 6 vessel) who came to the emergency department with chest pain, found hypotensive with ST elevation MD. He had a junctional rhythm. Clinical
picture, ECG and cardiac cath are c/w RV infarct. Patient immediately went into cardiogenic shock and was placed on norepinephrine. He underwent cardiac cath with attempted revascularizations as noted in the cath reports. 3 vessel grafts with
noted. These grafts were diseased. She also found a diseased [place] vessels connected to the wraps. Double successful stenting of [place] vessels although revascularization was not as optimistic. Patient's RV was almost at a standstill and RV
Impella device was placed. Temporary pacemaker was placed. By the time patient was out of the cardiac cath he had gone into V. tach. Intubated. He received multiple boluses of amiodarone and started on heparin drip. Despite this he continued to
have V. tach and was started on lidocaine drip. He continued to receive boluses of lidocaine. Despite this the patient was getting shocked approximately every 5 minutes. Cardiac index with Impella was 1.7, maintaining a blood pressure of around
100 systolic when being paced and on pressors. He had no purposeful movement. After approximately 30 minutes of being involved and family observing the proceedings they came to me to discuss goals of care. They did not want to continue giving the
defibrillation shocks. Patient was made DNR. This was discussed with exchange consultant who noted that maximum supportive care has been provided with no additional intervention outside of the shocks. Normal shocks were given and patient
. He was pronounced at 1945.
[2024-10-15 18:47] LABS: B.E. -10.6 mmol/L; HCO3 17.9 mmol/L (21-28); O2 Saturation % 97.7 % (94-98); PCO2 49 mmHg (35-48); PO2 107 mmHg (83-108)
[2024-10-15 18:49] LABS: pH 7.17 (7.35-7.45)
[2024-10-15] MEDS: MAGNESIUM SULFATE 100 IV (18:54)
[2024-10-15 18:55] LABS: % Basophils 0.2 % (0-2); % Eosinophils 0.2 % (0-6); % Immature Granulocytes 1.2 % (0-0.5); % Lymphocytes 14.9 % (20.5-51.1); % Monocytes 6.9 % (1.7-9.3); % Neutrophils 76.6 % (42.2-75.2); Absolute Immature Granulocytes 0.2 10^3/uL (0-0.05); Absolute Lymphocytes 2.9 10^3/uL (1.2-3.4); Absolute Monocytes 1.4 10^3/uL (0.1-0.6); Absolute Neutrophils 15.1 10^3/uL (1.4-6.5); Hemoglobin 12.2 g/dL (13.0-18.0); Mean Corp Hgb Conc. 33.9 g/dL (33.0-37.0); Mean Corpuscular Hgb 31.3 pg (27.0-31.0); Mean Corpuscular Volume 92.3 fL (80.0-94.0); Mean Platelet Volume 9.1 fL (7.4-10.4); Nucleated Red Blood Cells % 0 % (-); Platelet Count 168 10^3/uL (130-400); Red Cell Dist. Width 13.4 % (11.5-14.5); White Blood Cell Count 19.7 10^3/uL (4.8-10.8)
[2024-10-15 18:57] LABS: INR 1.48; PT 18.2 Sec (11.4-14.6)
[2024-10-15 18:59] LABS: Lactic Acid 4.1 mmol/L (0.7-2.0)
[2024-10-15 19:00] LABS: D-Dimer 0.74 ug/mlFEU (0.00-0.50)
[2024-10-15 19:05] LABS: ALT (SGPT) 28 U/L (0-50); AST (SGOT) 113 U/L (17-59); Albumin 3.2 g/dl (3.5-5.0); Alkaline Phosphatase 47 U/L (38-126); Blood Urea Nitrogen 18 mg/dl (9-20); Calcium 7.1 mg/dl (8.4-10.2); Carbon Dioxide 14 mmol/L (22-30); Chloride 111 mmol/L (98-107); Estimated Creatinine Clearance 67 ml/min; Glucose 418 mg/dl (70-99); LDH 375 U/L (120-246); Magnesium 2.3 mg/dl (1.6-2.3); Phosphorus 5.1 mg/dl (2.5-4.5); Potassium 3.1 mmol/L (3.5-5.1); Sodium 137 mmol/L (135-145); Total Bilirubin 0.8 mg/dl (0.2-1.3); Total Protein 5.5 g/dl (6.3-8.2); eGFR > 60.00
[2024-10-15] MEDS: SODIUM BICARBONATE 50 MEQ IV ×2 (19:07)
[2024-10-15] MEDS: SODIUM BICARBONATE 1025 MEQ INF CATH (19:21)
[2024-10-15 19:25] LABS: ACT-LR - POC 258 Seconds (116-155)
[2024-10-15 19:26] LABS: APTT > 200 Sec (23.4-35.0)
--- NOTE | 2024-10-15 19:50 | W.PN.UPDATE ---
Update Note
Progress Note Update
I reported to the CVICU to reassess the patient after placement of in R-Freedom after attempted but unsuccessful RCA intervention.
ABG showed that the patient was was suffering from a combined metabolic and respiratory acidosis. Sodium bicarbonate was administered.
He continued to suffer from significant arrhythmia issues. The R-Freedom flow settings were adjusted with modest success. He was given a bolus of calcium and magnesium.
Over the course of the next hour, the patient remained relatively stable, but began to develop severe arrhythmia issues. He required 4 defibrillation's in the space of 5 minutes, and spite of adjusting R-Freedom settings and medication doses.
Echocardiogram showed inferoseptal LV hypokinesis but preserved LV systolic function. The right ventricle demonstrated essential systolic standstill.
Speaking with the family, they expressed a desire for the patient to be made comfort care, particularly in light of the severity of his infarct and numerous defibrillations.
The patient entered ventricular fibrillation and defibrillation was aborted. The R-Freedom was disconnected. The patient's family was present at the bedside as the patient peacefully.
[2024-10-15 19:53] LABS: Fibrinogen 243 MG/DL (199-459)
--- NOTE | 2024-10-15 19:53 | W.PN.DEATH ---
Pronouncement of
-
Called to see patient to pronounce.
No spontaneous heart tones or respirations noted.
Patient not responsive to verbal stimuli.
Patient is pronounced .
Time of : 19:45
Date of : 10/15/24
Cause of : Myocardial Infarction/Cardiogenic Shock
Family Notified: Yes (Son Prince and rest of immediate family )
[2024-10-15] MEDS: CALCIUM CHLORIDE 10% SYRINGE 500 MG IV (19:55)
[2024-10-15] MEDS: XYLOCAINE BOLUS 100 MG IV (19:56)
--- NOTE | 2024-10-15 19:57 | PTCARENOTE ---
Pt arrived from slab lifting engineer to CVICU at 1854. Pt intubated. 100% V paced with venous pacemaker (settings 90/20/0.8). BP 107/45 MAP 68 on arrival. Vent set to AC FiO2 100%, TV 500, rate 16. RP Impella in place in right IJ. Impella initially set to P5,
later increased to P8 by Dr. Jimenez, than back down to P6 per Dr. Jimenez. Right femoral venous sheath with temp wire in place and arterial Opal. Pt on Dobutamine, Epi, Lido, Amio, and Levo. Bautista placed. Labs collected and reviewed. X-ray and ECHO
completed. Pt received Bicarb push x3, calcium push x2, Lido push, and mag rider. Pt shocked with 200J in total 17x. Dr. Jimenez at bedside to speak with family, decision made to withdraw care.
--- NOTE | 2024-10-16 00:31 | W.PN.UPDATE ---
Update Note
Progress Note Update
Impella, temporary right groin transvenous wire, and right groin femoral arterial line were all removed without incident [place] [facility] [place]
--- NOTE | 2024-10-16 06:14 | W.DCSUMMARY ---
Discharge Summary
Discharge Data
Date of Admission: 10/15/24
Date of Discharge: 10/15/24
Total time spent discharging patient (in min): 15
-
Pending Results: No
Hospital Course
69-year-old with past medical history of CAD status post multiple vessel CABG in (reports that 12 had 6 vessel) who came to the emergency department with chest pain, found hypotensive with ST elevation LA in the inferior and lateral leads. He had a
junctional rhythm. Clinical picture, ECG and cardiac cath are c/w RV infarct. LV function preserved on echo but RV with standstill. Patient immediately went into cardiogenic shock and was placed on norepinephrine. He underwent cardiac cath with
attempted revascularizations as noted in the cath reports. Found presumably dominant RCA that is chronically totally occluded at its origin. Unsuccessful PCI to RCA. LV function preserved. Patient's RV was almost at a standstill and RV Impella
device was placed. CPR initiated. Temporary pacemaker was placed. By the time patient was out of the cardiac cath he had gone into V. tach. Intubated. He received multiple boluses of amiodarone and infusion started. Despite this he continued
to have V. tach and was started on lidocaine drip. He continued to receive boluses of lidocaine. Required defibrillation for ventricular tachyarrhythmias approximately every 5 minutes. Cardiac index with Impella was 1.7, maintaining a blood
pressure of around 100 systolic when being paced and on pressors. He had no purposeful movement. After approximately 30 minutes of being involved and family observing the proceedings they came to me to discuss goals of care. They did not want to
continue giving the defibrillation shocks. Patient was made DNR. This was discussed with computer field technician who has been providing the resuscitation attempts and he noted that maximum supportive care has been provided with no additional
interventions available. No more defibrillation attempt and patient . He was pronounced at 1945.
Discharge Plan
-
Patient Disposition:
Date/Time
Date/Time: 10/15/24 19:45
Discharge Date and Time
Discharge Date/Time: 10/15/24 23:30
Print Language: YI
[2024-10-16 12:25] LABS: Glycohemoglobin (HgbA1c) 5.3 % (4.0-5.6)
== END 2024-10-15 23:30 | disposition expired | DRG 215 ==
LOC: CVICU 18:58
PROVIDERS: Nurse Practitioner; ADMITTING PHYSICIAN Internal Medicine Cardiovascular Disease; ATTENDING PHYSICIAN Internal Medicine; EMERGENCY PHYSICIAN Emergency Medicine
PROC: 5A0221D Assistance with Cardiac Output using Impeller Pump, Continuous (ICD-10-PCS; 2024-10-15)
PROC: 4A023N8 Measurement of Cardiac Sampling and Pressure, Bilateral, Percutaneous Approach (ICD-10-PCS; 2024-10-15)
PROC: 5A2204Z Restoration of Cardiac Rhythm, Single (ICD-10-PCS; 2024-10-15)
PROC: 02HA3RZ Insertion of Short-term External Heart Assist System into Heart, Percutaneous Approach (ICD-10-PCS; 2024-10-15)
PROC: 5A1223Z Performance of Cardiac Pacing, Continuous (ICD-10-PCS; 2024-10-15)
PROC: B2181ZZ Fluoroscopy of Left Internal Mammary Bypass Graft using Low Osmolar Contrast (ICD-10-PCS; 2024-10-15)
PROC: 5A12012 Performance of Cardiac Output, Single, Manual (ICD-10-PCS; 2024-10-15)
PROC: 5A1935Z Respiratory Ventilation, Less than 24 Consecutive Hours (ICD-10-PCS; 2024-10-15)
PROC: B2111ZZ Fluoroscopy of Multiple Coronary Arteries using Low Osmolar Contrast (ICD-10-PCS; 2024-10-15)
PROC: B2121ZZ Fluoroscopy of Single Coronary Artery Bypass Graft using Low Osmolar Contrast (ICD-10-PCS; 2024-10-15)
PROC: B2151ZZ Fluoroscopy of Left Heart using Low Osmolar Contrast (ICD-10-PCS; 2024-10-15)
PROC: 0BH17EZ Insertion of Endotracheal Airway into Trachea, Via Natural or Artificial Opening (ICD-10-PCS; 2024-10-15)
DX: I21.19 ST elevation (STEMI) myocardial infarction involving other coronary artery of inferior wall (principal); J96.90 Respiratory failure, unspecified, unspecified whether with hypoxia or hypercapnia; E87.4 Mixed disorder of acid-base balance; I25.810 Atherosclerosis of coronary artery bypass graft(s) without angina pectoris; I27.29 Other secondary pulmonary hypertension; I47.20 Ventricular tachycardia, unspecified; Z99.11 Dependence on respirator [ventilator] status; I25.10 Atherosclerotic heart disease of native coronary artery without angina pectoris; Z66 Do not resuscitate; Z51.5 Encounter for palliative care; I49.01 Ventricular fibrillation; R57.0 Cardiogenic shock; Z95.1 Presence of aortocoronary bypass graft
CPT/HCPCS: 33990; 71045; 80053; 82805; 83036; 83605; 83615; 83735; 84100; 84484; 85025; 85347; 85379; 85384; 85610; 85730; 92950; 93306; 93461; 96374; 96375; 99291; C1725; C1769; C1894